=== PATIENT | female | born 1940 | race Caucasian/White ===

== ENCOUNTER 2017-06-17 09:16 | Emergency (ER) | payer MEDICARE ==
[~2017-06-17] VITALS: Ht 175.3 cm; Wt 49.9 kg
[~2017-06-17 09:16] MED LIST: ASPIRIN 325MG325 MG PO; AUGMENTIN 875-1 EACH PO; KEPPRA 500 MG500 MG PO; METOPROLOL25 MG PO
[2017-06-17 09:56] VITALS: BP 105/57
== END 2017-06-17 09:56 | disposition home or self-care (01) ==
LOC: UTC 09:16
DX: S51.852D Open bite of left forearm, subsequent encounter (principal)

== ENCOUNTER 2017-09-24 19:35 | Emergency (ER) | payer MEDICARE ==
[~2017-09-24] VITALS: Ht 175.3 cm; Wt 49.9 kg
--- OUTSIDE RECORDS SUMMARY | 2017-09-24 19:39 | External Medical Summary Rpt | CCD ---
Demographics Home Phone Preferred Language Macanese Marital Status Unknown Synagogue Affiliation Unknown Race Unknown Ethnic Group Unknown Author Author PAMELA Address Unknown Phone Purpose Continuity of Care Document - through 2016
--- OUTSIDE RECORDS SUMMARY | 2017-09-24 19:39 | External Medical Summary Rpt | CCD ---
Demographics Home Phone Preferred Language Bahraini Marital Status Unknown Denominational Affiliation Unknown Race Unknown Ethnic Group Unknown Author Author PAMELA Address Unknown Phone Purpose Continuity of Care Document - through 2016
--- OUTSIDE RECORDS SUMMARY | 2017-09-24 19:40 | External Medical Summary Rpt ---
Author Author PAMELA Rubin, PAMELA Rubin Organization [employer] Address Unknown Phone Unavailable
--- OUTSIDE RECORDS SUMMARY | 2017-09-24 19:40 | External Medical Summary Rpt | CCD ---
Demographics Preferred Language Setswana Marital Status Unknown Gnosticism Affiliation Unknown Race Unknown Ethnic Group Unknown Author Author , PAMELA SANTIAGO Address Unknown Phone Immunization Unable to retrieve immunization data due to connection failure with Immunization Registry. Please try again later.
--- OUTSIDE RECORDS SUMMARY | 2017-09-24 19:40 | External Medical Summary Rpt | CCD ---
Demographics Preferred Language Danish Marital Status Unknown Orthodoxy Affiliation Unknown Race Unknown Ethnic Group Unknown Author Author , PAMELA SANTIAGO Address Unknown Phone Immunization Unable to retrieve immunization data due to connection failure with Immunization Registry. Please try again later.
--- NOTE | 2017-09-24 20:52 | Urgent Treatment Center Report ---
History of Present Issue Date/Time Seen by Provider 09/24/172049 Visit Reason Pt arrived:Walked Presenting Problem:PT STATES SHE STARTED AN ANTIBIOTIC YESTERDAY FOR A SINUS INFECTION. PT HAS CHRONIC VENOUS INSUFFICIENCY. PT HAS EDEMA IN THE LEFT LOWER LEG. REDNESS NOTED. PT STATES SHE SEEN DR. POWELL YESTERDAY. Location if Accident: Onset of symptoms date/time:/ or onset unknown for:MEDICAL HX UNKNOWN Have you (or family members/close friends) recently traveled outside the [place]? N If Yes, where/when: Have you had exposure to infectious disease within the past month? TB? Other? Specify: c/o redness to left lower extremity first noticed this morning and worse throughout day. Dr. powell not in this afternoon and closed tomorrow. Reports just saw Dr. Powell yesterday for URI symptoms. Dx sinusitis. Pt reports due to hx of venous insuff "he always looks at my legs". Adament he examined marilin LEs yesterday and this redness was not present. Rx amoxicillin 1000mg TID x 10 days. Pt wonders if this is making her leg red possibly. Denies fever, aches, chills. "some pain". Isn't sure of her normal BP. Source patient Exam Limitations no limitations ALLERGIES Coded Allergies: No Known Allergies (06/07/17) Home Medications Discontinued Scripts Amoxicillin/Potassium Clav (Augmentin 875-125 Tablet) 1 EACH PO BID #14 TAB Prov: 06/07/17 DC: 09/24/170 Reported Medications Amoxicillin (Amoxicillin 500MG) 2 CAPSULE PO TID #60 Metoprolol Tartrate (Metoprolol) 25 MG PO BID ASPIRIN (Aspirin 325MG) 325 MG PO DAILY Levetiracetam (Keppra 500 Mg Tablet) 500 MG PO BID History Medical History General CAD? No Angina: No AL: No Hypertension? Yes Hyperlipidemia? No CHF? No DVT? No PE? No COPD? No Asthma? No Anemia? No GERD? No Gastric ulcers? No GI Bleed? No Hernia? No Thyroid Problems? No Hypothyroidism? No CVA? No Seizures? Yes Renal Insuffiency? No UTI? No Stones? No BPH? No GB Disease: No Nephritic Syndrome? No Asplenia? No Hepatitis? No Sickle Cell Disease? No Arthritis? No Migraines? No Cataracts? No Glaucoma? No MRSA? No HIV? No TB? No Anxiety? No Depression? No Cancer? No More? No Immunization HX DT/Tetanus > 10 Years Ago Surgical Hx Previous Surgery?N Social History Smoking Hx Smoker: Never Smoker Tobacco: No Alcohol Alcohol: No Review of Systems All Other Systems Reviewed and Negative (as appropriate for CC) Constitutional see HPI, denies malaise, denies weakness Gastrointestinal denies nausea, denies vomiting Musculoskeletal see HPI, denies joint pain, other (marilin feet edema "every day") Skin see HPI Psychiatric/Neurological denies numbness, denies tingling Physical Exam Vital Signs Vital Signs Date Time Temp Pulse Resp B/P Pulse O2 O2 Flow FiO2 Ox Delivery Rate 09/24 2037 98.8 74 20 95/54 97 General Appearance normal appearance, no apparent distress Respiratory Status No: respiratory distress. Cardiovascular 2+ pitting edema marilin feet Peripheral Pulses Pulses normal Yes (left DP 2+) Back gait normal Extremities normal range of motion (left ankle and knee) Strength 5 Lower Ext (L), 5 Lower Ext (R) Neurologic alert Mental status spacey, poor historian Skin [id number] venous stasis ulcer left medial distal lower leg, skin intact, deep purple surrounding hot and ttp erythema, evidence of venous insuff w/ flaking marilin LEs, no redness or wounds right LE Medical Decision Making LABS/Meds/Orders Pt receiving controlled substance in ED? No Results/Orders Current Medication Orders Sig/Yelitza Start time Last Medication Dose Route Stop Time Status Admin Clindamycin Phosphate 300 MG ONCE ONE 09/24 2145 DC 09/24 IM 09/24 Clindamycin Phosphate 0 .STK-MED ONE 09/24 2136 DC .ROUTE Consult MD Physician Consult 1 Consult/PCP Dr. Arango, ER MD Time Called 2109 Reason Pt. Condition Comments House office, [facility], was in clinic and saw pt's leg. Went to Dr. Arango in the ER and requested that he evaluate pt. recommended having pt follow up with Dr. Powell in the morning and did not evaluate pt. Physician Consult 2 Consult/PCP lópez Grady for pt's PCPDr. Powell Time Called 2127 Reason Pt. Condition Comments Discussed pt's hx and exam. Was on computer at that time. Rvwd my note and pt's hx. Suggest clindamycin 300mg IM tonight w/ rx for clindamycin 300mg TID x 5 days with strict instructions to see Dr. Powell on Friday. Progress [facility] Progress Notes Date 09/24/17 Time 2124 Comment Discussed ER MD's recommendation with patient and my plan to start on a different . Dr. powell does not return to the office until Friday. Closed on . Prefers lópez VALDEZ be paged. Departure Departure Time of Disposition 2144 Disposition DC Home or Self Care(routine) Clinical Impression Primary Impression: Venous stasis ulcer Qualifiers: Venous stasis ulcer site: other part of lower leg Varicose vein presence: without varicose veins Laterality: left Non-pressure ulcer stage: unspecified non-pressure ulcer stage Qualified Code: I87.2 - Venous insufficiency (chronic) (peripheral) Condition STABLE Referrals Andre VALDEZ,Franc Barlow (Family) Return to ER if skin breaks open or any onset fever. Otherwise, follow up with Dr. Powell on Friday extremely important. Patient Instructions Venous Stasis Ulcer Additional Instructions Elevate, elevate, elevate Continue amoxicillin Start clindamycin (new antibiotic) tomorrow Monitor closely and return to ER if skin opens or fever begins Follow up with Dr. Powell VERY important for Friday!! Discharge Counseling Counseled pt/family regarding diagnosis, medications/RX, home care, follow up needs Prescriptions Current Visit Scripts Clindamycin Hcl (Clindamycin 300MG) 300 MG PO TID #15 CAP at [id number]
[2017-09-24] MEDS ORDERED: AMOXICOT500 MG PO (21:40)
[2017-09-24] MEDS ORDERED: CLINDAMYCIN HC300 MG PO (21:48)
[2017-09-24 21:50] VITALS: BP 95/54
== END 2017-09-24 21:50 | disposition home or self-care (01) ==
LOC: UTC 19:35
DX: I87.2 Venous insufficiency (chronic) (peripheral) (principal); I10 Essential (primary) hypertension; Z79.82 Long term (current) use of aspirin